=== PATIENT | female | born 1995 | race American Indian/Alaskan Native ===

== ENCOUNTER 2018-05-21 08:22 | Emergency (ER) | payer MEDICAID, OTHER ==
[2018-05-21 08:28] VITALS: BP 148/96
[2018-05-21] MEDS ORDERED: TRIPLE ANTIBIOTIC TP ONE (08:48)
[2018-05-21] MEDS ORDERED: KEFLEX PO ONE (08:48)
[2018-05-21] MEDS ORDERED: MOTRIN PO ONE (08:48)
--- NOTE | 2018-05-21 08:48 | Emergency Department Report ---
Upper Extremity - HPI Chief Complaint: Extremity Injury, Upper Stated Complaint: FINGER INJURY Time Seen by Provider: 05/21/18 08:39 Upper Extremity: Right Middle Finger (third middle finger injury with swelling and pain and nail bed injury) Occurred When: Today Mechanism: Hit with Object Severity: moderate Symptoms: Yes Pain with Movement (right third middle finger), Yes Limited Range of Movement (full range of motion but pain with movement), Yes Swelling (right third middle finger), Yes Bruising/Ecchymosis (nail bed injury right third middle finger with minimal bleeding), No Deformity, No Numbness, No Weakness, No Laceration or Abrasion Other History: Patient here reports that she injured her right third middle finger this morning and that she accidentally slammed in car door. She said it was bleeding and she recommended over it. Tetanus vaccines up-to-date. Pain 6 out of 10 achy worsen movement and she is reporting some injury to her nailbed and denies any restriction of movement. Pain is worse with movement and no lesion factors. No medication taken ED Review of Systems ROS: Stated complaint: FINGER INJURY Other details as noted in HPI Constitutional: denies: chills, fever Respiratory: denies: cough, shortness of breath, wheezing Cardiovascular: denies: chest pain, palpitations Gastrointestinal: denies: nausea, vomiting Genitourinary: discharge Musculoskeletal: joint swelling, arthralgia. denies: back pain, myalgia Skin: change in hair/nails (injury to nailbed right third middle finger). denies: rash, lesions Neurological: denies: numbness, paresthesias, confusion ED Past Medical Hx - Past Medical History Previous Medical History?: No - Surgical History Past Surgical History?: No - Family History Family history: no significant - Social History Smoking Status: Never Smoker Substance Use Type: None - Medications Home Medications: Home Medications Medication Instructions Recorded Confirmed Last Taken Type Cephalexin [Keflex] 500 mg PO Q8HR 7 Days #21 cap 05/21/18 Unknown Rx Ibuprofen [Motrin] 600 mg PO Q8H PRN #12 tablet 05/21/18 Unknown Rx Upper Extremity Exam - Exam General: Vital signs noted. No distress. Alert and acting appropriately. This is a 23-year-old female well-nourished well-developed in no acute distress. Head and Torso: No HEENT Abnormality, No Neck Tenderness, No Chest/Lungs Abnormality, No Abdominal Tenderness, No Back Tenderness Shoulder Exam: No Shoulder Tenderness, No Clavicle Tenderness, No Normal Range of Motion in Shoulder, No Shoulder Deformity, No AC Joint Tenderness Arm Exam: No Arm/Humerus Tenderness, No Arm Deformity Elbow: Yes Normal Range of Motion in Elbow (full range of motion), No Elbow Tenderness, No Elbow Deformity Forearm: No Forearm Tenderness, No Forearm Deformity, No Pain with Pronation, No Pain with Supination Wrist: Yes Normal ROM in Wrist (full range of motion), No Wrist Tenderness, No Wrist Deformity, No Snuffbox Tenderness, No Pain with Axial Thumb Compression Hand: Yes Digit Tenderness (right third middle finger with swelling, pain and tenderness to palpate. Nailbed is intact to right third middle finger but she has bleeding around cuticle without any avulsion. No deformity noted), Yes Normal ROM in Digit(s) (full range of motion to the fingers of both hands patient with pain with motion right third middle finger), No Hand Tenderness, No Hand Deformity, No Digit(s) Deformity, No Tendon Dysfunction CMS Exam: Yes Broken Skin (no broken skin but she has bleeding around right third middle finger nail with intact to nail bed and no avulsion.), Yes Normal Distal Pulses (No cce. + 2 pulses in all extremities, no neurovascular compromise), Yes Normal Capillary Refill (less than 2 seconds), Yes Normal Distal Sensation (good color, sensation, temperature movement extremities of both hands.) Hand L/R Back: 1 - Tender to palpate right third middle finger with scant amount of bleeding from cuticle but name secure on nailbed. No subungual hematoma. Patient with swelling to left third middle finger with pain on range of motion. ED Course Vital Signs 05/21/18 08:23 Temperature 98.6 F Pulse Rate 82 Respiratory 18 Rate Blood Pressure 148/96 O2 Sat by Pulse 99 Oximetry - Reevaluation(s) Reevaluation #1: 05/21/18 09:41 She was getting bigger. Emergency room, Keflex 500 mg by mouth. Pain has been relieved and Keflex empirically for infection. Her right third middle finger soaked, cleansed with iodine and pressure normal saline. Neosporin ointment placed a slight conjunctival congestion. ED Medical Decision Making - Radiology Data Radiology results: report reviewed X-ray of the right third middle finger dictated by radiologist and myself. See report below. Patient: JUDITH BURRELL MR#: [id number] : 1995 Acct:[id number] Age/Sex: 23 / F ADM Date: 05/21/18 Loc: ED Attending Dr: Ordering Physician: AMARILIS SMITH Date of Service: 05/21/18 Procedure(s): XR finger(s) 2+V RT Accession Number(s): [id number] cc: AMARILIS SMITH Fluoro Time In Minutes: FINAL REPORT EXAM: XR FINGER(S) 2+V RT HISTORY: rt 3rd finger injury with and swelling COMPARISON: None. TECHNIQUE: Three views of the right middle finger, including a frontal view of the hand FINDINGS: There is normal alignment without acute fracture or dislocation. The joint spaces are preserved. There is no radiopaque foreign body. There is a soft tissue injury of the dorsal aspect of the distal finger. IMPRESSION: No acute bony abnormality of the 3rd finger. Soft tissue injury of the dorsal aspect of the distal finger. Transcribed By: DHRUV Dictated By: YAMILE VALDERRAMA MD Electronically Authenticated By: YAMILE VALDERRAMA MD Signed Date/Time: 05/21/18931 DD/ 1 TD/TT: 05/21/18931 - Medical Decision Making This is a 23-year-old female who reports that she injured her right third middle finger by slamming it in car door this morning. She reports pain and some bleeding. Tetanus vaccines up-to-date. I saw and examined the patient and she has good radial ulnar pulses bilaterally , with cold sensation movement temperature to extremities. 2+ and bounding pulses radial ulnar. No restriction movements or extremities. She has normal extremity exam except her right third middle finger with swelling and pain with movement. Tender to palpate with nailbed injury without any subungual hematoma. She has scant amount of bleeding from cuticle around the right third middle finger nail is secure the nail bed. Patient had x-ray of right third finger which shows soft tissue swelling but no fracture or dislocation. This was dictated per radiologist and reviewed by myself. Her pains controlled. Motrin and she takes Keflex 500 mg by mouth. Patient did not diagnosis and report and she was understanding. Injured site cleansed with normal saline and Neosporin ointment placed followed by for discharge us and Arthralgia right third middle finger secondary to injury-Motrin 800 mg by mouth 1 dose and will be sent home on Motrin Contusion to right third middle finger included in nail without any nail avulsion and nail is secure and nailbed. X-ray of right third middle finger showed soft tissue swelling to the dorsal, distal aspect of the finger but no fracture dislocation. The wound care information above. Rice therapy explained Patient discharged home in stable condition with prescription for Motrin and Keflex and will follow with her primary care physician in 2-3 days. I told her if she does not have a primary care physician she is to follow-up with outside [facility] she reports understanding her tetanus vaccine is up-to-date. Signs are stable and she is febrile and pain is controlled. - Differential Diagnosis fracture, contusion, sprain, musculoskeletal pain Critical care attestation.: If time is entered above; I have spent that time in minutes in the direct care of this critically ill patient, excluding procedure time. ED Disposition Clinical Impression: Arthralgia Qualifiers: Joint pain location: hand Laterality: right Qualified Code(s): M25.541 - Pain in joints of right hand Contusion of middle finger with damage to nail Qualifiers: Encounter type: initial encounter Laterality: right Qualified Code(s): S60.131A - Contusion of right middle finger with damage to nail, initial encounter Disposition: - TO HOME OR SELFCARE Is pt being admited?: No Does the pt Need Aspirin: No Condition: Stable Instructions: Contusion in Adults (ED), Arthralgia (ED), RICE Therapy (ED) Additional Instructions: Please see discharge instruction in acute wound care Apply warm compresses to affected area 4 times a day to facilitate then and increased drainage Keep affected area clean and dry Motrin for pain and please take medication with food to prevent nausea or irritation to stomach lining Take a keflex for infection Return to the emergency room if, he developed fever, chills, increased pain and drainage from site, nausea and vomited, increase in redness and/or weakness. Referrals: PRIMARY CARE, [Primary Care Provider] - 2-3 Days [facility] [Outside] - 2-3 Days Forms: Work/School Release Form(ED)
--- NOTE | 2018-05-21 09:37 | XRay Report ---
FINAL REPORT EXAM: XR FINGER(S) 2+V RT HISTORY: rt 3rd finger injury with and swelling COMPARISON: None. TECHNIQUE: Three views of the right middle finger, including a frontal view of the hand FINDINGS: There is normal alignment without acute fracture or dislocation. The joint spaces are preserved. There is no radiopaque foreign body. There is a soft tissue injury of the dorsal aspect of the distal finger. IMPRESSION: No acute bony abnormality of the 3rd finger. Soft tissue injury of the dorsal aspect of the distal finger.
== END 2018-05-21 10:06 | disposition home or self-care (01) ==
LOC: ED 08:22
DX: S60.131A Contusion of right middle finger with damage to nail, initial encounter (principal); W23.0XXA Caught, crushed, jammed, or pinched between moving objects, initial encounter; Y93.89 Activity, other specified; Y92.89 Other specified places as the place of occurrence of the external cause; Y99.8 Other external cause status
CPT/HCPCS: 99283; A6250

== ENCOUNTER 2019-05-05 00:48 | Emergency (ER) | payer SELFPAY ==
[2019-05-05 01:09] VITALS: BP 138/87
== END 2019-05-05 03:20 | disposition left against medical advice (07) ==
LOC: ED 00:48
DX: M79.605 Pain in left leg (principal); Z53.21 Procedure and treatment not carried out due to patient leaving prior to being seen by health care provider

== ENCOUNTER 2022-03-06 12:54 | Outpatient (CLI) | payer MEDICAID ==
[2022-03-06 13:32] VITALS: BP 126/72
--- NOTE | 2022-03-06 18:20 | Ultrasound Report ---
Limited OB Ultrasound Biophysical profile HISTORY: bpp, total blake, placenta grade. TECHNIQUE: Grayscale and color imaging performed. COMPARISON: None FINDINGS: There is a single viable intrauterine gestation with cephalic presentation and posterior pl acenta. BLAKE is 13.5 cm. Heart rate is 151 bpm. On biophysical profile, the fetus received a score of 2 out of 2 for breathing, movement, posture/ton e, and BLAKE. Total score was 8 out of 8. IMPRESSION: 1. Single viable intrauterine gestation as above. 2. Normal biophysical profile. Signer Name: Farhan Xavier MD Signed: 03/06/2022 6:16 PM Workstation Name: [id number]
== END 2022-03-06 18:16 | disposition home or self-care (01) ==
LOC: TRG 12:54 → APU 12:57 → TRG 18:16
PROVIDERS: ATTEND Student in an Organized Health Care Education/Training Program
DX: O26.92 Pregnancy related conditions, unspecified, second trimester (principal); Z3A.27 27 weeks gestation of pregnancy
CPT/HCPCS: 76815; 76819; 85460